=== PATIENT | female | born 1970 | race Hispanic/Latino ===

== ENCOUNTER 2018-03-01 11:23 | Day surgery (SDC) | payer OTHER ==
[~2018-03-01 11:23] MED LIST: DILAUDID IV PRN; LEVAQUIN 500MG/100ML 500 MG/100 ML BAG IV NR; NACL 0.9% 1000 ML 1,000 ML IV SCH; VERSED IV NR; ZOFRAN IV PRN
[2018-03-01] MEDS ORDERED: LEVAQUIN 500MG/100ML 500 MG/100 ML BAG IV NR (12:00)
[2018-03-01] MEDS ORDERED: NACL BACTERIOSTATIC INFILTRATI ONE (12:11)
--- NOTE | 2018-03-01 12:38 | Anesthesia Consultation ---
Anesthesia Consult and Med Hx Date of service: 03/01/18 - Airway Anesthetic Teeth Evaluation: Good ROM Head & Neck: Adequate Mental/Hyoid Distance: Adequate Mallampati Class: Class II Intubation Access Assessment: Good - Pulmonary Exam CTA: Yes - Cardiac Exam Cardiac Exam: No Murmur - Pre-Operative Health Status ASA Pre-Surgery Classification: ASA2 Proposed Anesthetic Plan: General - Pulmonary Hx Smoking: No Hx Sleep Apnea: No (JAH PRE SCREEN NEGATIVE) - Cardiovascular System Hx Hypertension: No - Hematic Hx Anemia: Yes (NOT RECENT) - Other Systems Hx Cancer: No
--- NOTE | 2018-03-01 12:40 | Anesthesia Day of Surgery ---
Anesthesia Day of Surgery - Day of Surgery Patient Examined: Yes Patient H&P Reviewed: Yes Patient is NPO: Yes
--- NOTE | 2018-03-01 13:01 | Post Operative Note ---
Pre-op diagnosis: R renal stone Post-op diagnosis: same Findings: as above Procedure: R eswl Anesthesia: JOSE Surgeon: ARLYN RASHID Estimated blood loss: none Pathology: none Condition: stable Disposition: PACU
--- NOTE | 2018-03-01 13:02 | Discharge Summary ---
Short Stay Discharge Plan Activity: other (no straining ) Weight Bearing Status: Full Weight Bearing Diet: regular Special Instructions: other (inc fluids ) Follow up with: PRIMARY CARE, [Primary Care Provider] - 7 Days FRANCISCO VAUGHN MD [Staff Physician] - 7 Days
[2018-03-01] MEDS ORDERED: DIPRIVAN 10 MG/ML IV ONE (13:11)
[2018-03-01] MEDS ORDERED: XYLOCAINE MPF 2% ONE (13:14)
[2018-03-01] MEDS ORDERED: ZOFRAN ONE (13:29)
[2018-03-01] MEDS ORDERED: NEO SYNEPHRINE/NS Syringe(OR USE) IV ONE (13:36)
--- NOTE | 2018-03-01 13:51 | Operative Report ---
PREOPERATIVE DIAGNOSES: Right large renal pelvic stone with previous stenting. POSTOPERATIVE DIAGNOSES: Right large renal pelvic stone with previous stenting. PROCEDURE: Right extracorporeal shock wave lithotripsy. SURGEON: Jules Flaherty MD ANESTHESIA: General. FINDINGS: This is a woman who presented with severe pain, had a stent placed about a week and a half ago. She now presents for lithotripsy. All risks and implications were discussed. DESCRIPTION OF PROCEDURE: The patient was brought to the operating room and placed on the operating table. Following induction of anesthesia, stone was easily localized within the loop of the double-J stent. Shocks were began at 1 kV increased to maximum of 5 kV. Total of 2500 shocks were given. There was some fragmentation. We were right on the stone throughout the procedure. The patient tolerated the procedure well. There were no significant complications. The patient may need followup the second stage lithotripsy with laser or percutaneous nephrostomy. She needs followup. Family knows that. She has a double J in good position and a followup with Dr. Mishra. JOB# [id number] ANNIE/RONNIE
[2018-03-01] MEDS: DILAUDID IV PRN ×2 (14:20→14:30)
[2018-03-01] MEDS ORDERED: DILAUDID ONE (14:22)
[2018-03-01] MEDS ORDERED: DILAUDID IV PRN (14:29)
--- NOTE | 2018-03-01 14:32 | Post Anesthesia Evaluation ---
- Post Anesthesia Evaluation Patient Participated: Yes Airway Patent: Yes Stable Respiratory Function: Yes Nausea/Vomiting: No Temp > 96.8F: Yes Pain Manageable: Yes Adequeate Hydration: Yes Anesthesia Complications: No
[2018-03-01] MEDS ORDERED: TORADOL IV PRN (14:41)
[2018-03-01 16:03] VITALS: BP 115/67
== END 2018-03-01 15:54 | disposition home or self-care (01) ==
LOC: OR 11:23
PROVIDERS: ATTEND Urology
DX: N20.0 Calculus of kidney (principal); Z96.0 Presence of urogenital implants; Z88.1 Allergy status to other antibiotic agents; Z98.51 Tubal ligation status; Z98.890 Other specified postprocedural states
CPT/HCPCS: 50590; 81025; J1170; J1885; J1956; J2250; J2370; J2405; J2704; J7030